=== PATIENT | male | born 1985 | race Two or more races ===

== ENCOUNTER 2020-03-23 22:21 | Emergency (ER) | payer OTHER ==
[~2020-03-23] VITALS: Ht 162.6 cm; Wt 65.8 kg
[2020-03-24] MEDS ORDERED: GILTUSS ALLERG118 ML PO (01:27)
[2020-03-24] MEDS ORDERED: PROVENTIL HFA6.7 GM IH (01:27)
[2020-03-24] MEDS ORDERED: INTESTINEX680 M1 PO (03:45)
[2020-03-24] MEDS ORDERED: PEPCID40 MG PO (03:45)
== END 2020-03-24 03:57 | disposition home or self-care (01) ==
LOC: ER 22:21
DX: K21.9 Gastro-esophageal reflux disease without esophagitis (principal); R50.9 Fever, unspecified; R05 Cough